=== PATIENT | female | born 1965 | race Caucasian/White ===

== ENCOUNTER 2019-05-04 12:48 | Outpatient (CLI) | payer BC, OTHER ==
--- NOTE | 2019-05-04 14:28 | CT ---
Exam: Chest CT without contrast HISTORY: Benign thymic neoplasm. COMPARISON: 10/30/2016 FINDINGS: Mediastinum: Limited evaluation due to lack of IV contrast. Stable oval hypodensity in the anterior m ediastinum between 2.5 x 1.3 cm (sleeve the mass measure 2.3 x 1.5 cm). Lesion has an attenuation coefficient of 31 Hounsfield units. Additional anterior mediastinal masses are not appreciated. HEART: Normal size. No pericardial effusion Aorta: Grossly unremarkable. Limited evaluation by technique Upper abdomen: Contracted gallbladder with gallstones. Visualized solid organs are unremarkable Trachea and central bronchi: Patent Pleural spaces: No pleural effusion Pneumothorax: None Right lung: Pleural-based nodule along the right lower lobe measuring 0.5 cm, unchanged. No suspiciou s masses, consolidation. Left lung: No suspicious masses or consolidation. Osseous structures: No acute osseous abnormality IMPRESSION: Stable well-circumscribed hypodense mass in the anterior mediastinum.
== END 2019-05-04 12:49 | disposition home or self-care (01) ==
LOC: BICCT 12:48
PROVIDERS: ATTEND Thoracic Surgery (Cardiothoracic Vascular Surgery)
DX: D15.0 Benign neoplasm of thymus (principal); R22.2 Localized swelling, mass and lump, trunk
CPT/HCPCS: 71250

== ENCOUNTER 2022-09-10 11:03 | Emergency (ER) | payer BC, OTHER ==
[~2022-09-10 11:03] MED LIST: Iopamidol-370 76% 500 ML 1 ML ONE
[2022-09-10 11:55] LABS: #Eosinphils 0.2 thou/uL (0.0-0.7); #Lymphocytes 2.4 thou/uL (1.20-3.40); #Monocytes 0.5 thou/uL (0.11-0.59); #Neutrophils 3.1 thou/uL (1.40-6.50); %Basophils 0.8 % (0.0-1.0); %Eosinophils 3.1 % (0.0-10.0); %Lymphocytes 38.8 % (21.0-51.0); %Monocytes 7.7 % (0.0-10.0); %Neutrophils 49.7 % (42.0-75.0); Hemoglobin 13.7 g/dL (12.0-16.0); Mean Corpuscular HGB CONC 33.7 g/dL (32.0-36.0); Mean Corpuscular Hemoglobin 31.2 pg (27.0-31.0); Mean Corpuscular Volume 92.8 fl (78.0-98.0); Mean Platelet Volume 6.7 fL (7.4-10.4); Platelet Count 348 10x3/uL (130-400); RBC Distribution Width 11.4 % (11.5-14.5); Red Blood Cell (RBC) Count 4.39 mill/uL (4.20-5.40); White Blood Cell (WBC) Count 6.1 10x3/uL (4.8-10.8)
[2022-09-10 12:09] LABS: ALT (SGPT) 22 U/L (8-55); AST (SGOT) 26 U/L (5-34); Albumin 4.8 g/dL (3.5-5.0); Alkaline Phosphatase 65 U/L (40-110); Anion Gap 14 mmol/L (10-20); BUN (Urea Nitrogen) 9 mg/dL (9.8-20.1); Bilirubin, Total 0.5 mg/dL (0.2-1.2); Calc. Creatinine Clearance 0 mL/min (70-130); Calcium 9.6 mg/dL (7.8-10.44); Carbon Dioxide 26 mmol/L (22-29); Chloride 104 mmol/L (98-107); Estimated GFR 80; Glucose 95 mg/dL (70-105); Lipase 51 U/L (8-78); Potassium 3.8 mmol/L (3.5-5.1); Protein, Total 7.8 g/dL (6.0-8.3); Sodium 140 mmol/L (136-145)
[2022-09-10 13:24] LABS: Magnesium 2.1 mg/dL (1.6-2.6)
[2022-09-10 13:26] LABS: Bilirubin Negative (Negative); Blood, Urine Trace (Negative); Clarity Clear (Clear); Glucose, Urine (Dipstick) Normal (Negative); Ketone, Urine Negative (Negative); Leukocyte Negative Leu/uL (Negative); Nitrite Negative (Negative); Protein, Urine (Dipstick) Negative (Neg-Trace); RBC/HPF 0-3 HPF (0-3); Specific Gravity, Urine 1.006 (1.002-1.036); Squamous Epithelial 0-3 HPF (0-3); Urobilinogen Normal mg/dL (Less than 2); WBC/HPF 0-3 HPF (0-3); pH, Urine 7.5 (5.0-9.0)
[2022-09-10 13:27] LABS: Bacteria/HPF 1+ HPF (None Seen)
[2022-09-10 13:49] LABS: SARS-CoV-2 NAA Rapid Test Not Detected (NotDetected)
== END 2022-09-10 13:53 | disposition home or self-care (01) ==
LOC: ERS 11:03
DX: R07.9 Chest pain, unspecified (principal); R42 Dizziness and giddiness; E03.9 Hypothyroidism, unspecified; Z20.822 Contact with and (suspected) exposure to COVID-19
CPT/HCPCS: 71045; 71275; 80053; 81003; 81015; 83690; 83735; 83880; 84443; 84484; 85025; 85379; 93005; Q9967; U0002